=== PATIENT | male | born 1995 | race Hispanic/Latino ===

== ENCOUNTER 2020-05-01 10:18 | Emergency (ER) | payer SELFPAY ==
--- NOTE | ~2020-05-01 | XR_ITS ---
EXAMINATION: XR chest 2V EXAM DATE: 05/01/2020 10:49 INDICATION: Fell 2 days ago, right-sided chest crushing. TECHNIQUE: Frontal and lateral projections of the chest obtained and reviewed. There is no prior toyin dy for comparison. FINDINGS: The lungs are clear. There are no pleural effusions. The cardiomediastinal silhouette is within normal limits. There is no pneumothorax suspected. No displaced rib fractures identified. Co nsider educating patient that even if there is a radiographically occult nondisplaced rib fracture, t here is no specific treatment other than to refrain from activity that prevents healing. IMPRESSION: No acute cardiopulmonary findings. Reviewed, dictated and finalized at location B.
[2020-05-01 10:30] VITALS: BP 140/79; PULSE 57; RESP 16; TEMP 36.6; O2SAT 100
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
== END 2020-05-01 11:16 | disposition home or self-care (01) ==
PROVIDERS: Emergency Provider Nurse Practitioner
DX: S20.211A Contusion of right front wall of thorax, initial encounter (principal); V86.55XA Driver of 3- or 4- wheeled all-terrain vehicle (ATV) injured in nontraffic accident, initial encounter
CPT/HCPCS: 71046; 99213; G0463

== ENCOUNTER 2022-01-25 13:08 | Emergency (ER) | payer SELFPAY ==
[2022-01-25 13:34] VITALS: BP 133/77; PULSE 76; RESP 16; TEMP 36.4; O2SAT 97
--- NOTE | 2022-01-25 15:05 | ED.WOUNDLAC ---
HPI - Wound/Laceration General Chief Complaint: Wound/Laceration Stated Complaint: cut foot on glass Time Seen by Provider: 01/25/22 14:41 Related Data Home Medications Medication Instructions Recorded Confirmed No Home Medications 05/01/20 05/01/20 Allergies Allergy/AdvReac Type Severity Reaction Status Date / Time pineapple AdvReac Unknown Verified 05/01/20 10:37 Review of Systems Review of Systems: CONSTITUTIONAL: Denies fever, chills, or sweats. EYES: Denies visual changes, redness, or discharge. ENT: Denies rhinorrhea, congestion, sore throat, or otalgia. CARDIOVASCULAR: Denies chest pain, palpitations, or edema. RESPIRATORY: Denies cough or dyspnea. GASTROINTESTINAL: Denies abdominal pain, nausea, vomiting, or diarrhea. GENITOURINARY: Denies dysuria or hematuria. SKIN: Reports laceration to right foot MUSCULOSKELETAL: Denies back pain, joint pain, or myalgia. NEUROLOGIC: Denies headache, numbness, dizziness, or weakness. PSYCHIATRIC: Denies anxiety or depression. [facility] Social History Social History Gender identity (if verbalized by the patient): Male Exam Narrative: GENERAL: Well-appearing, well-nourished, and in no acute distress. HEAD: Normocephalic, atraumatic. EYES: PERRLA and EOMI. CHEST: Clear to auscultation. No respiratory distress. No wheezes rales or rhonchi HEART: Regular rate and rhythm. No murmur heard. Normal peripheral pulses. ABDOMEN: Soft, nontender, nondistended, normal active bowel sounds. EXTREMITIES: Normal range of motion. No edema. SKIN: 1-1/2 cm linear laceration to the chest dorsal surface of the right foot over the distal fifth metatarsal; full range of motion of fifth toe NEURO: No focal deficits. Alert and oriented x3. PSYCH: Normal mood and affect. Course Vital Signs Vital signs: Vital Signs Temperature 36.4 C L 01/25/22 13:34 Pulse Rate 76 01/25/22 13:34 Respiratory Rate 16 01/25/22 13:34 Blood Pressure 133/77 01/25/22 13:34 Pulse Oximetry 97 01/25/22 13:34 Temperature 36.4 C L 01/25/22 13:34 Pulse Rate 76 01/25/22 13:34 Respiratory Rate 16 01/25/22 13:34 Blood Pressure 133/77 01/25/22 13:34 Pulse Oximetry 97 01/25/22 13:34 Procedures Laceration Laceration 1: Date: 01/25/22 Time: 15:26 Site: lower extremity (foot) Side (If applicable): right Size (cm): 1.5 Description: linear Depth: simple, single layer Local Anesthetic: lidocaine 1% Amount of anesthesia used (mL): 3 Pre-repair: irrigated ====== Skin Level ====== Skin layer closed with: nylon Size (cm): 4-0 Number of sutures: 3 Technique: simple, interrupted ====== Subcutaneous Layer ====== ====== Muscle Layer ====== ====== Tendon Layer ====== Discharge Plan Discharge Clinical Impression: Laceration Patient Disposition: Home, Self-Care Condition: Stable Instructions: Antibiotic Form, Laceration (ED) Additional Instructions: Keep wound clean and dry and covered. Monitor for signs of infection which include: Swelling, redness, increased pain, purulent discharge Prescriptions: No Action No Home Medications RF: 0 Follow-up/Referrals: UNKNOWN,DOCTOR [Primary Care Provider] - Time of Disposition: 15:27
[2022-01-25] MEDS: LIDOCAINE HCL 1% LOCAL INJ 20 ML VIAL INFILTRATE (15:25)
[2022-01-25] MEDS: TETANUS,DIPHTHERIA,AC PERTUSSIS ADULT (0.5 ML) BOOSTRIX IM (15:25)
== END 2022-01-25 15:35 | disposition home or self-care (01) ==
LOC: ANHED 15:29
PROVIDERS: Emergency Provider Nurse Practitioner Family
DX: S91.311A Laceration without foreign body, right foot, initial encounter (principal); Z23 Encounter for immunization; W25.XXXA Contact with sharp glass, initial encounter
CPT/HCPCS: 12001; 90471; 90715; 99282

== ENCOUNTER 2024-10-29 17:15 | Emergency (ER) | payer SELFPAY ==
--- NOTE | ~2024-10-29 | XR_ITS ---
HISTORY: lateral pain with swelling COMPARISON: None TECHNIQUE: 3 views of the right ankle were performed. FINDINGS: No acute fracture or dislocation. Lateral soft tissue swelling. The ankle mortise is preserved. Bone mineralization is age-appropriate. IMPRESSION: Soft tissue swelling, without acute fracture Reviewed, dictated and finalized at location A. SE DRIVER
[2024-10-29 17:30] VITALS: BP 132/86; PULSE 67; RESP 16; TEMP 36.9; O2SAT 100
--- NOTE | 2024-10-29 18:00 | ED_ITS ---
HPI - Extremity Injury (Lower) General Chief Complaint: Extremity Injury, Lower Stated Complaint: INJURED R ANKLE Time Seen by Provider: 10/29/24 18:00 Source: patient Mode of arrival: ambulatory Limitations: no limitations History of Present Illness HPI Narrative: 29-year-old male presents with right ankle pain. Around 1:00 p.m. patient twisted right ankle walking on gumballs from his tree in his yd. Patient a rrived with crutches from home. Swelling noted to lateral aspect of ankle, range of motion decreased due to pain. Distal neurovascularly intact. All systems reviewed and negative except as noted above. Related Data Home Medications ?Medication ?Instructions ?Recorded ?Confirmed ?Last Taken ?Type No Home Medications 05/01/20 10/29/24 Unknown History Allergies Allergy/AdvReac Type Severity Reaction Status Date / Time pineapple AdvReac Unknown Verified 10/29/24 17:37 Review of Systems Review of Systems: CONSTITUTIONAL: Denies fever, chills, or sweats. EYES: Denies visual changes, redness, or discharge. ENT: Denies rhinorrhea, congestion, sore throat, or otalgia. CARDIOVASCULAR: Denies chest pain, palpitations, or edema. RESPIRATORY: Denies cough or dyspnea. GASTROINTESTINAL: Denies abdominal pain, nausea, vomiting, or diarrhea. GENITOURINARY: Denies dysuria or hematuria. SKIN: Denies rash or itching. MUSCULOSKELETAL: Denies back pain, or myalgia. Patient reports pain and swelling to right ankle NEUROLOGIC: Denies headache, numbness, or weakness. PSYCHIATRIC: Denies anxiety or depression. All other systems reviewed are negative, except as documented in HPI. [facility], [facility] Past Medical History Medical History (Updated 10/29/24 @ 18:06 by Geni Mejía NP) Rash Encounter to establish care Morbid obesity with BMI of 40.0-44.9, adult Screening for diabetes mellitus Family History Family History (Updated 12/04/22 @ 08:47 by LUL Shah) Grandparent Cerebrovascular accident Hypertension Diabetes mellitus Thyroid disease Social History Social History (Updated 12/05/22 @ 13:58 by LUL Shah) Smoking status: Never smoker Alcohol intake: never Substance use: never Substance use type: does not use Lack of Transportation: No Lack of Food: Never True Current Housing: I Have Housing Concerned About Future Housing: No Difficulty Paying Gas/Electric Bills: No Difficulty Paying for Meds: No Currently Unemployed: No Education: High School Diploma/GED Difficulty w/ Childcare or Family Care: No Gender identity (if verbalized by the patient): Male Comments At time of signature, agree with nursing past medical, surgical, social and family history. There is no relevant family history pertinent to the presenting complaint. Exam Narrative: GENERAL: This is a well-nourished, well-developed patient, in no apparent distress. HEAD: normocephalic, atraumatic. EYES: PERRL. Sclera clear/white. Vision is grossly intact. EARS: External ears normal NOSE: External nose normal NECK: Neck supple, non-tender without lymphadenopathy, masses or thyromegaly. CARDIOVASCULAR: Regular rate and rhythm without murmurs, gallops, or rubs. RESPIRATORY: Clear to auscultation. Breath sounds equal bilaterally. No wheezes, rales, or rhonchi. SKIN: warm, Dry, intact with no suspicious lesions or rash, good texture and turgor. NEURO: awake, alert, and oriented to person, place and time. There were no obvious focal neurologic abnormalities. EXTREMITIES: Moderate swelling to right ankle, lateral aspect. No deformity noted. Tenderness to anterior and posterior tibiofibular ligament. No instability. Course Course Level of Care: Express Care Visit Vital Signs Vital signs: Vital Signs Temperature 36.9 C 10/29/24 17:30 Pulse Rate 67 10/29/24 17:30 Respiratory Rate 16 10/29/24 17:30 Blood Pressure 132/86 10/29/24 17:30 Pulse Oximetry 100 10/29/24 17:30 Temperature 36.9 C 10/29/24 17:30 Pulse Rate 67 10/29/24 17:30 Respiratory Rate 16 10/29/24 17:30 Blood Pressure 132/86 10/29/24 17:30 Pulse Oximetry 100 10/29/24 17:30 Reviewed MDM - Extremity Injury (Lower) MDM Narrative Medical decision making narrative: X-ray of right ankle negative for fracture. Discussed results with patient. Patient offered a Gagan wrap but did not feel was necessary. Is going to go buy an ankle brace. Patient has crutches from home. Range of motion and distal neurovascularly intact at time of discharge. Recommend follow-up with primary care physician if pain not improving. Please be advised this is a medical document. It is intended for [id number] communication. It is written in medical language and may contain unfamiliar abbr eviations or verbiage. Medical documents are intended to carry relevant information, facts as evident, and the clinical opinion of the practitioner at the time of the encounter. This report may have been done utilizing a voice recognition system. Attempts have been made to correct errors. However, there may be uncorrected grammatical, spelling, and recognition errors present. The file time of this note does not necessarily represent the time of service. Differential Diagnosis Differential diagnosis: Likely ankle sprain and strain Imaging Data My impression: Agree with radiologist Radiologist's impression: HISTORY: lateral pain with swelling COMPARISON: None TECHNIQUE: 3 views of the right ankle were performed. FINDINGS: No acute fracture or dislocation. Lateral soft tissue swelling. The ankle mortise is preserved. Bone mineralization is age-appropriate. IMPRESSION: Soft tissue swelling, without acute fracture Discharge Plan Discharge Clinical Impression: Right ankle sprain Qualifiers: Encounter type: initial encounter Involved ligament of ankle: unspecified ligament Qualified Code(s): S93.401A - Sprain of unspecified ligament of right ankle, initial encounter Patient Disposition: Home, Self-Care Condition: Stable Instructions: Ankle Sprain (ED) Additional Instructions: The x-ray of your right ankle was negative for fracture. Wear Gagan wrap or similar ankle brace to compress swelling. Elevate when at rest. Apply ice as needed for pain. Take ibuprofen every 6-8 hours as needed for pain. Follow-up with your primary care physician if pain and swelling not improving. Patient Language: French Prescriptions: No Action No Home Medications Follow-up/Referrals: PHYSICIAN,TRAIN ANNOUNCER [Primary Care Provider] - Time of Disposition: 18:06
== END 2024-10-29 18:14 | disposition home or self-care (01) ==
PROVIDERS: Emergency Provider Nurse Practitioner Family
DX: S93.401A Sprain of unspecified ligament of right ankle, initial encounter (principal); X50.0XXA Overexertion from strenuous movement or load, initial encounter
CPT/HCPCS: 73610; 99213; G0463